=== PATIENT | female | born 2000 | race American Indian/Alaskan Native ===

== ENCOUNTER 2020-08-28 16:32 | Emergency (ER) | payer SELFPAY ==
[2020-08-28 17:13] VITALS: BP 129/78
--- NOTE | 2020-08-28 17:13 | Event Note ---
ED Screening Note Date of service: 08/28/20 Time: 17:11 ED Screening Note: Pt complains of pain from nexplanon in left arm x 1 week and choking feeling and food getting stuck in throat x 1 month Alert and oriented x 3 nexplanon palpated in left upper arm without signs of infection This initial assessment/diagnostic orders/clinical plan/treatment(s) is/are subject to change based on patients health status, clinical progression and re- assessment by fellow clinical providers in the ED. Further treatment and workup at subsequent clinical providers discretion. Patient/guardian urged not to elope from the ED as their condition may be serious if not clinically assessed and managed. Initial orders include: ACC
--- NOTE | 2020-08-28 21:07 | Emergency Department Report ---
ED General Adult HPI - General Chief complaint: Extremity Problem,Nontraumatic Stated complaint: RASH Time Seen by Provider: 08/28/20 17:10 Source: patient Mode of arrival: Ambulatory Limitations: No Limitations - History of Present Illness Initial comments: 20-year-old [place] female assessment department complaining of a several week history of of episodic left control pain for which she feels is causing her to have significant anxiety due to her family and her boyfriend believing her periods of discomfort. She reports no fever, chills, sweats no wound discharge no redness no bleeding no numbness or tingling. She is not yet followed with her [employer] to evaluate the discomfort and control was implanted in June 2018 due to be removed in June 2021. 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 and for that reason she typically has a regular style diet eating lots of symptoms and drinking lots of fluids to gain her nut rients and and has many questions about pureing her food states that would help her anxiety if she did not have to chew she reports no known history of any depression schizophrenia cyclothymia definitive form disorder she reports no suicidal homicidal ideation no illicit drug use -: Gradual Radiation: non-radiation - Related Data Allergies Allergy/AdvReac Type Severity Reaction Status Date / Time No Known Allergies Allergy Unverified 08/28/20 17:15 ED Review of Systems ROS: Stated complaint: RASH Other details as noted in HPI Comment: All other systems reviewed and negative ED Past Medical Hx - Past Medical History Previous Medical History?: No - Surgical History Past Surgical History?: No ED Physical Exam - General Limitations: No Limitations General appearance: alert, in no apparent distress - Head Head exam: Present: atraumatic, normocephalic - Eye Eye exam: Present: normal appearance - ENT ENT exam: Present: normal exam, normal orophraynx, mucous membranes moist, other (Appendix is clear airway patent tongue and uvula are midline no drooling normal voice) - Neck Neck exam: Present: normal inspection, full ROM - Respiratory Respiratory exam: Present: normal lung sounds bilaterally. Absent: respiratory distress - Cardiovascular Cardiovascular Exam: Present: regular rate, normal rhythm. Absent: systolic murmur, diastolic murmur, rubs, gallop - GI/Abdominal GI/Abdominal exam: Present: soft, normal bowel sounds - Extremities Exam Extremities exam: Present: normal inspection, tenderness (Normal of control implant area. No cellulitis no swelling no tenderness with palpation no lymphangitis noted pulses 2+), normal capillary refill - Back Exam Back exam: Present: normal inspection - Neurological Exam Neurological exam: Present: alert, oriented X3, CN II-XII intact, normal gait - Psychiatric Psychiatric exam: Present: normal affect, normal mood, anxious. Absent: agitated, manic, homicidal ideation, suicidal ideation - Skin Skin exam: Present: warm, dry, intact, normal color. Absent: rash ED Course Vital Signs 08/28/20 17:09 Temperature 98.7 F Pulse Rate 74 Respiratory 16 Rate Blood Pressure 129/78 O2 Sat by Pulse 100 Oximetry ED Medical Decision Making - Medical Decision Making 20-year-old female with anxiety for multiple reasons. On physical examination causes for her poorly dysphagia speech is normal she is drinking orange juice and eating Chick-cecelia-A soup with no complications. Physical examination was also normal. control D minimal variation as well no suggestion of any infectious processes or irritation. Been advised to follow-up with her [employer] and primary care provider for further evaluation and also discussed with her possibility of her disease and follow-up with ENT for further evaluation as well Critical care attestation.: If time is entered above; I have spent that time in minutes in the direct care of this critically ill patient, excluding procedure time. ED Disposition Clinical Impression: Uses contraceptive implant for control, Arm pain, Anxiety, Dysphagia Disposition: - TO HOME OR SELFCARE Is pt being admited?: No Does the pt Need Aspirin: No Condition: Stable Instructions: Barium Swallow (ED), Chronic Dysphagia (ED) Referrals: PRIMARY MD PATRIZIA [Primary Care Provider] - 3-5 Days MARICEL UP MD [Staff Physician] - 3-5 Days DALTON ROMAN MD [Referring] - 3-5 Days FERNANDO DURÁN MD [Staff Physician] - 3-5 Days BETTY MCLAUGHLIN MD [Staff Physician] - 3-5 Days
== END 2020-08-28 21:43 | disposition home or self-care (01) ==
LOC: ED 16:32
DX: F41.9 Anxiety disorder, unspecified (principal)
CPT/HCPCS: 99281